=== PATIENT | female | born 1950 | race Caucasian/White ===

== ENCOUNTER 2022-02-26 15:52 | Emergency (ER) | payer MEDICARE, OTHER ==
[~2022-02-26] VITALS: Ht 160 cm; Wt 86.0 kg
[2022-02-26 16:13] VITALS: BP 110/37
== END 2022-02-26 21:07 | disposition home or self-care (01) ==
LOC: ER 15:52
DX: S80.11XA Contusion of right lower leg, initial encounter (principal); Z86.73 Personal history of transient ischemic attack (TIA), and cerebral infarction without residual deficits; Z98.61 Coronary angioplasty status; W22.8XXA Striking against or struck by other objects, initial encounter; Y93.89 Activity, other specified; Y92.89 Other specified places as the place of occurrence of the external cause; Y99.8 Other external cause status
CPT/HCPCS: 73590